=== PATIENT | male | born 1950 | race Caucasian/White ===

== ENCOUNTER 2022-07-19 17:18 | Emergency (ER) | payer MEDICARE, OTHER ==
[~2022-07-19] VITALS: Ht 182.9 cm; Wt 91.3 kg
[2022-07-19] VITALS (19 sets, daily range): BP systolic 76–147; BP diastolic 44–76
[~2022-07-19 17:18] MED LIST: ALPRAZOLA1 PO; ATORVASTATI80 MG/TAB PO; ATORVASTATIN CA80 MG PO; FE GLUCONATE325 MG PO; FOLIC ACID1 MG PO; LISINOP/HCTZ1 TAB PO; LORCET HD 10-321 TAB; METOPROL TAR25 MG PO; TRAZODONE50 MG PO
[2022-07-19 17:51] LABS: HEMATOCRIT 23.2 % (39.0-50.0); HEMOGLOBIN 7.1 g/dl (14.0-18.0); IMMATURE GRANULOCYTES 0.4 % (0.0-5.0); MEAN CELL VOLUME 92.1 fL CALC (80.0-100.0); MEAN CORPUSCULAR HGB 28.2 pG CALC (26.0-32.0); MEAN CORPUSCULAR HGB CONC 30.6 g/dL CAL (32.0-36.0); NEUT# 14.87 thou/uL (1.82-7.42); RED BLOOD COUNT 2.52 mill/uL (4.70-6.10)
[2022-07-19 18:08] LABS: ALBUMIN 3.5 g/dL (3.2-5.0); ALKALINE PHOSPHATASE 58 u/l (38-126); ANION GAP 22 (6-22 (CALC)); BILIRUBIN, TOTAL 0.3 mg/dL (0.0-1.4); BUN 50 mg/dL (8-23); BUN/CREATININE RATIO 55 (12-20 (CALC)); CARBON DIOXIDE 19 mmol/l (22-30); CHLORIDE 102 mmol/l (95-108); CREATININE 0.9 mg/dL (0.7-1.3); GFR FOR AFR.AMER. > 60 ML/MIN (>=60 (CALC)); GFR OTHER RACES > 60 ML/MIN (>=60 (CALC)); POTASSIUM 4.4 mmol/l (3.5-5.1); SGOT/AST 20 u/l (19-48); SODIUM 138 mmol/l (137-146); TOTAL PROTEIN 5.5 g/dL (6.3-8.2)
[2022-07-19 19:54] LABS: URINE BILIRUBIN - DIPSTICK NEGATIVE (NEGATIVE); URINE BLOOD DIPSTICK NEGATIVE (NEGATIVE); URINE COLOR YELLOW; URINE GLUCOSE - DIPSTICK NEGATIVE (NEGATIVE); URINE KETONE NEGATIVE (NEGATIVE); URINE LEUK ESTERASE NEGATIVE (NEGATIVE); URINE PH 5.5 (4.5-8.0); URINE PROTEIN - DIPSTICK NEGATIVE (NEG-TRACE); URINE SPECIFIC GRAVITY 1.025; URINE UROBILINOGEN - DIPSTICK 0.2 E.U./dL (0.2)
[2022-07-19 20:00] LABS: URINE NITRITE - DIPSTICK NEGATIVE (Negative)
[2022-07-19] MEDS ORDERED: ELIQUIS5 MG PO (21:49)
== END 2022-07-19 22:57 | disposition short-term general hospital (02) ==
LOC: ED 17:18
PROVIDERS: Emergency Medicine; Nurse Practitioner
PROC: 30233N1 Transfusion of Nonautologous Red Blood Cells into Peripheral Vein, Percutaneous Approach (ICD-10-PCS; principal; 2022-07-19)
DX: I95.1 Orthostatic hypotension (principal); D64.9 Anemia, unspecified; E87.2 Acidosis; Z20.822 Contact with and (suspected) exposure to COVID-19; I10 Essential (primary) hypertension; Z95.1 Presence of aortocoronary bypass graft; Z95.5 Presence of coronary angioplasty implant and graft; R19.5 Other fecal abnormalities
CPT/HCPCS: P9016; Q9967

== ENCOUNTER 2022-08-30 11:30 | Emergency (ER) | payer MEDICARE, OTHER ==
[~2022-08-30] VITALS: Ht 182.9 cm; Wt 91.0 kg
[2022-08-30] VITALS (11 sets, daily range): BP systolic 122–186; BP diastolic 70–90
[~2022-08-30 11:30] MED LIST changes: +ELIQUIS5 MG PO
[2022-08-30] MEDS ORDERED: PREDNISONE10 MG PO (11:46)
[2022-08-30] MEDS ORDERED: NORVASC2.5 M1 PO (11:47)
[2022-08-30] MEDS ORDERED: PROZAC20 MG PO (11:47)
[2022-08-30] MEDS ORDERED: CARVEDILOL6.25 MG PO (11:47)
[2022-08-30] MEDS ORDERED: AVAPRO300 MG PO (11:48)
[2022-08-30] MEDS ORDERED: PROTONIX40 M2 PO (11:48)
[2022-08-30] MEDS ORDERED: ASPIRIN81 MG PO (11:48)
[2022-08-30 13:08] LABS: IMMATURE GRANULOCYTES 0.2 % (0.0-5.0); MEAN CELL VOLUME 89.1 fL CALC (80.0-100.0); MEAN CORPUSCULAR HGB CONC 31.5 g/dL CAL (32.0-36.0); NEUT# 9.53 thou/uL (1.82-7.42); RED BLOOD COUNT 4.39 mill/uL (4.70-6.10); RED CELL DISTRI WIDTH 16.3 % (11.5-15.5)
[2022-08-30 13:22] LABS: HEMATOCRIT 39.1 % (39.0-50.0); HEMOGLOBIN 12.3 g/dl (14.0-18.0)
[2022-08-30 13:34] LABS: ALBUMIN 4.2 g/dL (3.2-5.0); ALKALINE PHOSPHATASE 72 u/l (38-126); BILIRUBIN, TOTAL 0.4 mg/dL (0.0-1.4); CHLORIDE 94 mmol/l (95-108); CREATININE 0.9 mg/dL (0.7-1.3); GFR FOR AFR.AMER. > 60 ML/MIN (>=60 (CALC)); GFR OTHER RACES > 60 ML/MIN (>=60 (CALC)); LIPASE 60 u/l (23-300); POTASSIUM 4.3 mmol/l (3.5-5.1); SGOT/AST 33 u/l (19-48); TOTAL PROTEIN 6.3 g/dL (6.3-8.2)
[2022-08-30 13:36] LABS: ANION GAP 15 (6-22 (CALC)); BUN 21 mg/dL (8-23); BUN/CREATININE RATIO 23 (12-20 (CALC)); CARBON DIOXIDE 25 mmol/l (22-30); SODIUM 130 mmol/l (137-146)
== END 2022-08-30 14:46 | disposition home or self-care (01) ==
LOC: ED 11:30
PROVIDERS: Nurse Practitioner
DX: R07.81 Pleurodynia (principal); M25.511 Pain in right shoulder; R63.0 Anorexia; R53.83 Other fatigue; K59.00 Constipation, unspecified; I10 Essential (primary) hypertension; I25.10 Atherosclerotic heart disease of native coronary artery without angina pectoris; K21.9 Gastro-esophageal reflux disease without esophagitis; Z79.01 Long term (current) use of anticoagulants; Z95.1 Presence of aortocoronary bypass graft; Z87.11 Personal history of peptic ulcer disease

== ENCOUNTER 2022-09-24 13:07 | Emergency (ER) | payer MEDICARE, OTHER ==
[~2022-09-24] VITALS: Ht 182.9 cm; Wt 90.0 kg
[2022-09-24] VITALS (7 sets, daily range): BP systolic 103–176; BP diastolic 55–88
[~2022-09-24 13:07] MED LIST changes: +ASPIRIN81 MG PO; +AVAPRO300 MG PO; +CARVEDILOL6.25 MG PO; +NORVASC2.5 M1 PO; +PREDNISONE10 MG PO; +PROTONIX40 M2 PO; +PROZAC20 MG PO
[2022-09-24 16:05] LABS: HEMATOCRIT 42.6 % (39.0-50.0); HEMOGLOBIN 13.7 g/dl (14.0-18.0); IMMATURE GRANULOCYTES 0.3 % (0.0-5.0); MEAN CELL VOLUME 90.3 fL CALC (80.0-100.0); MEAN CORPUSCULAR HGB CONC 32.2 g/dL CAL (32.0-36.0); NEUT# 15.16 thou/uL (1.82-7.42); RED BLOOD COUNT 4.72 mill/uL (4.70-6.10); RED CELL DISTRI WIDTH 15.7 % (11.5-15.5)
[2022-09-24 16:15] LABS: ALBUMIN 4.4 g/dL (3.2-5.0); ALKALINE PHOSPHATASE 79 u/l (38-126); ANION GAP 14 (6-22 (CALC)); BUN 17 mg/dL (8-23); BUN/CREATININE RATIO 22 (12-20 (CALC)); CARBON DIOXIDE 27 mmol/l (22-30); CHLORIDE 93 mmol/l (95-108); CREATININE 0.8 mg/dL (0.7-1.3); GFR FOR AFR.AMER. > 60 ML/MIN (>=60 (CALC)); GFR OTHER RACES > 60 ML/MIN (>=60 (CALC)); POTASSIUM 4.6 mmol/l (3.5-5.1); SGOT/AST 39 u/l (19-48); SODIUM 129 mmol/l (137-146); TOTAL PROTEIN 7.2 g/dL (6.3-8.2)
[2022-09-24 16:16] LABS: BILIRUBIN, TOTAL 0.6 mg/dL (0.0-1.4)
[2022-09-24] MEDS ORDERED: HYDROCHLOROT12.5 M1 PO (18:15)
[2022-09-24] MEDS ORDERED: NORVASC5 M1 PO (18:18)
[2022-09-24] MEDS ORDERED: OXYCODO-APAP1 TA2 PO (19:39)
[2022-09-24] MEDS ORDERED: NAPROXEN500 MG PO (19:39)
[2022-09-24] MEDS ORDERED: METHOCARBAMOL500 MG PO (19:39)
== END 2022-09-24 20:42 | disposition home or self-care (01) ==
LOC: ED 13:07
PROVIDERS: Nurse Practitioner
DX: S22.41XA Multiple fractures of ribs, right side, initial encounter for closed fracture (principal); I10 Essential (primary) hypertension; I25.10 Atherosclerotic heart disease of native coronary artery without angina pectoris; I73.9 Peripheral vascular disease, unspecified; S32.020D Wedge compression fracture of second lumbar vertebra, subsequent encounter for fracture with routine healing; W01.0XXA Fall on same level from slipping, tripping and stumbling without subsequent striking against object, initial encounter; Y93.H9 Activity, other involving exterior property and land maintenance, building and construction; Y92.007 Garden or yard of unspecified non-institutional (private) residence as the place of occurrence of the external cause; X58.XXXD Exposure to other specified factors, subsequent encounter
CPT/HCPCS: Q9967